=== PATIENT | male | born 1990 | race Caucasian/White ===

== ENCOUNTER 2022-03-02 17:15 | Emergency (ER) | payer MEDICARE, OTHER ==
[2022-03-02 17:38] VITALS: TEMP 99.1
[2022-03-02] MEDS ORDERED: methylPREDNISolone SOD SUCCI 125 MG/2 ML VIAL IM ONE (19:47)
[2022-03-02] MEDS ORDERED: ALBUTEROL NEBULIZED 2.5 MG/3 ML INHALATION STA (19:47)
[2022-03-02] MEDS ORDERED: ACETAMINOPHEN TAB 500 MG TAB PO STA (19:48)
[2022-03-02] MEDS ORDERED: ALBUTEROL HFA INHALER INHALATION STA (20:20)
--- NOTE | 2022-03-02 21:10 | XR ---
EXAMINATION TYPE: XR chest 2V DATE OF EXAM: 03/02/2022 COMPARISON: NONE HISTORY: Cough and headache TECHNIQUE: 2 views FINDINGS: Heart and mediastinum are normal. Lungs are clear. Diaphragm is normal. Bony thorax is inta ct. IMPRESSION: Normal chest.
--- NOTE | 2022-03-02 21:32 | ED ---
Fever HPI - General Chief Complaint: Fever Stated Complaint: covid+, rash Time Seen by Provider: 03/02/22 19:38 Source: patient Mode of arrival: ambulatory Limitations: no limitations - History of Present Illness Initial Comments: Patient's 31-year-old male with a past medical history of ulcerative colitis who presents to the emergency department for COVID-19 infection. Patient presents from [place]. Patient states his symptoms started 2 days ago. States he had a positive at home test today. Patient reports productive cough and fever. States his temperature was 100.2F today. Took Motrin prior to arrival. States that his "brain is on fire in his bones are cold." Reports rash on his head which is very itchy. Denies use of new soaps and skin products. Denies recent penicillin use which he has allergy to. Denies use of new medications. Denies chest pain and shortness of breath. Denies use of immunosuppressive therapy for ulcerative colitis. Denies history of asthma and COPD. - Related Data Allergies Allergy/AdvReac Type Severity Reaction Status Date / Time Penicillins Allergy Anaphylaxis Verified 03/02/22 17:38 tramadol Allergy Anaphylaxis Verified 03/02/22 17:38 Review of Systems ROS Statement: Those systems with pertinent positive or pertinent negative responses have been documented in the HPI. ROS Other: All systems not noted in ROS Statement are negative. Past Medical History Additional Past Medical History / Comment(s): ulcerative colitis History of Any Multi-Drug Resistant Organisms: None Reported Additional Past Surgical History / Comment(s): ostomy, hernia mesh, surgical scrubbing of abdomen, wound vac Past Psychological History: No Psychological Hx Reported Smoking Status: Current every day smoker Past Alcohol Use History: None Reported Past Drug Use History: Opiates General Exam Limitations: no limitations General appearance: alert, in no apparent distress Eye exam: Present: normal appearance, PERRL, EOMI. Absent: scleral icterus, conjunctival injection, periorbital swelling Respiratory exam: Present: normal lung sounds bilaterally, wheezes (mild in upper airways). Absent: respiratory distress, rales, rhonchi, stridor Cardiovascular Exam: Present: regular rate, normal rhythm, normal heart sounds. Absent: systolic murmur, diastolic murmur, rubs, gallop, clicks GI/Abdominal exam: Present: soft, normal bowel sounds. Absent: distended, tenderness, guarding, rebound, rigid Neurological exam: Present: alert, oriented X3, CN II-XII intact Psychiatric exam: Present: normal affect, normal mood Skin exam: Present: warm, dry, intact, normal color, rash (diffuse erythema over forehead, scalp, and chest with hives ) Course Vital Signs 03/02/22 03/02/22 17:34 21:58 Temperature 99.1 F Pulse Rate 82 81 Respiratory 16 17 Rate Blood Pressure 125/76 127/68 O2 Sat by Pulse 98 99 Oximetry Medical Decision Making - Medical Decision Making This is a 31-year-old male presenting with COVID-19 infection and rash. Afebrile. No hypoxia. Mild wheezing heard in the upper airways. Diffuse erythema noted over forehead, scalp, and chest with hives. Chest x-ray negative for acute process. Patient given allergic reaction cocktail which improved rash. Albuterol nebulizer treatment ordered however respiratory therapist declined due to COVID-19 infection. Patient used albuterol inhaler with resolution of wheezing. Patient looks well, has stable vital signs, no wheezing, and is stable for discharge. He is instructed to continue Benadryl around the clock for any further rash and itching. Dr. Reina is my attending. - Lab Data Lab Results 03/02/22 Range/Units 20:27 Coronavirus (PCR) Detected A (Not Detectd) Disposition Clinical Impression: COVID-19, Wheezing, Shortness of breath Disposition: HOME SELF-CARE Condition: Good Instructions (If sedation given, give patient instructions): COVID-19 (Coronavirus Disease 2019) (ED) Additional Instructions: Take Motrin for body aches, headache, fever. Take [id number] Benadryl around the clock for any consistent itching and rash. Follow-up with primary ca re provider in one to 2 days. Report back to the emergency department experience new, concerning, or worsening symptoms Is patient prescribed a controlled substance at d/c from ED?: No Referrals: None,Stated [Primary Care Provider] - 1-2 days Time of Disposition: 21:32
[2022-03-02] MEDS ORDERED: FAMOTIDINE 20 MG TAB PO STA (21:39)
[2022-03-02] MEDS ORDERED: diphenhydrAMINE 50 MG/ML 1 ML VIAL IM STA (21:39)
[2022-03-02 22:00] VITALS: BP 127/68; PULSE 81; RESP 17
== END 2022-03-02 22:05 | disposition home or self-care (01) ==
LOC: EC 17:15
DX: U07.1 COVID-19 (principal); F17.200 Nicotine dependence, unspecified, uncomplicated; Z88.0 Allergy status to penicillin; Z88.5 Allergy status to narcotic agent
CPT/HCPCS: 94640; 87635; 71046; 99284; 96372 ×2; J1200; J2930